=== PATIENT | male | born 1955 | race Caucasian/White ===

== ENCOUNTER 2017-03-23 08:24 | Day surgery (SDC) | payer BC, OTHER ==
[~2017-03-23] VITALS: Ht 167.6 cm; Wt 105.7 kg
[~2017-03-23 08:24] MED LIST: NAPROSYN500 MG PO; NEXIUM40 MG PO; TRAZODONE HCL50 MG PO
[2017-03-23 08:49] VITALS: BP 141/76
[2017-03-23 14:25] VITALS: BP 125/67
[2017-03-23 20:35] VITALS: BP 117/57
[2017-03-23 23:25] VITALS: BP 125/65
[2017-03-24 04:30] VITALS: BP 124/68
[2017-03-24 07:44] VITALS: BP 126/66
[2017-03-24] MEDS ORDERED: OXYCODONE HCL5 MG PO (07:51)
[2017-03-24 11:42] VITALS: BP 143/75
== END 2017-03-24 12:35 | disposition home health service (06) ==
LOC: SDC 08:24 → 2SOUTH 09:37 → SDC 11:08 → 3EAST 12:15 → 2SOUTH 12:15 → ENRESERV 12:39 → 2SOUTH 12:51 → ENRESERV 12:55 → 3EAST 14:10 → SDC 15:39 → 3EAST 03-24 12:35
PROC: 0RRJ0J6 Replacement of Right Shoulder Joint with Synthetic Substitute, Humeral Surface, Open Approach (ICD-10-PCS; principal; 2017-03-23)
DX: M19.011 Primary osteoarthritis, right shoulder (principal); H54.8 Legal blindness, as defined in USA; K21.9 Gastro-esophageal reflux disease without esophagitis
CPT/HCPCS: G0378; G8978 GP CH; G8979 GP CH; G8980 GP CH; G8987 CK; G8988 GO CJ; G8989 GO CK; J0131; J0690; J1100; J2250; J2405; J2795; J3010; J7030; J7050